=== PATIENT | male | born 1960 | race Caucasian/White ===

== ENCOUNTER 2018-12-29 21:19 | Emergency (ER) | payer OTHER ==
--- OUTSIDE RECORDS SUMMARY | 2018-12-29 21:34 | XMS REPORT | Clinical Summary ---
:1960 Author Organization [facility] Address [address] [place] [id number] Care Team Providers Name Role Phone Allyssa Frances MD Primary Care Provider Allergies No Known Allergies Medications Medication Sig Dispensed Refills Start Date End Date Status lisinopril-hydrochlo Take 1 tablet 30 tablet 11 10/22/2017 rothiazide by mouth 9 (PRINZIDE,ZESTORETIC daily. ) 20-25 mg per tabletIndications: Essential hypertension atorvastatin Take 1 tablet 90 tablet 3 10/22/2017 (LIPITOR) 20 MG (20 mg total) 9 tabletIndications: by mouth Hyperlipidemia, daily. unspecified Default OP hyperlipidemia type ins metoprolol tartrate Take 1 tablet 180 tablet 3 10/24/2017 Discontinued (LOPRESSOR) 25 mg (25 mg total) 9 tablet by mouth 2 (two) times a day. Active Problems Problem Noted Date Essential hypertension 10/27/2017 Hyperlipidemia 10/27/2017 Encounters Date Type Specialty Care Team Description 09/10/2018 Office Visit Cardiology Sai Vázquez MD Essential hypertension (Primary Dx); Hyperlipidemia, unspecified hyperlipidemia type after 12/28/2017 Family History Medical History Relation Name Comments COPD Father Heart failure Father Stroke Father Hypertension Mother Relation Name Status Comments Father Mother Alive Social History Tobacco Use Types Packs/Day Years Used Date Never Smoker Smokeless Tobacco: Never Used Alcohol Use Drinks/Week oz/Week Comments Yes socially Sex Assigned at Date Recorded Not on file Job Start Date Occupation Industry Not on file Not on file Not on file Travel History Travel Start Travel End No recent travel history available. Last Filed Vital Signs Vital Sign Reading Time Taken Blood Pressure 128/61 09/10/2018 3:34 PM BANK REPRESENTATIVE Pulse 62 09/10/2018 3:34 PM BANK REPRESENTATIVE Temperature - - Respiratory Rate - - Oxygen Saturation - - Inhaled Oxygen Concentration - - Weight 80.7 kg (178 lb) 09/10/2018 3:34 PM BANK REPRESENTATIVE Height 180.3 cm (5' 11") 09/10/2018 3:34 PM BANK REPRESENTATIVE Body Mass Index 24.83 09/10/2018 3:34 PM BANK REPRESENTATIVE Plan of Treatment Date Type Specialty Care Team Description 09/09/2019 Office Visit Cardiology Sai Vázquez MD [id number] [place] [address] Health Maintenance Due Date Last Done Comments COLON CANCER SCREENING 2009 SHINGLES VACCINES (#1) 2009 INFLUENZA VACCINE 02/27/2019 Procedures Procedure Name Priority Date/Time Associated Diagnosis Comments ECG 12-LEAD Routine 09/10/2018 3:38 PM Essential hypertension Results for this BANK REPRESENTATIVE Hyperlipidemia, procedure are in unspecified the results hyperlipidemia type section. after 12/28/2017 Results ECG 12 lead (09/10/2018 3:38 PM BANK REPRESENTATIVE) Ventricular rate 62 [facility] Atrial rate 62 [facility] WA interval 118 [facility] QRSD interval 94 [facility] QT interval 376 [facility] QTC interval 381 [facility] P axis 1 75 [facility] QRS axis 1 76 [facility] T wave axis 66 [facility] EKG impression Normal sinus rhythm [facility] with sinus arrhythmia-Normal ECG-In automated comparison with ECG of 22-OCT-2017 15:58,-No significant change was found- Specimen Narrative Performed At Performing Organization Address City/State/Zipcode Phone Number [facility] [address] [place] [address] after 12/28/2017 Advance Directives Patient has advance care planning documents on file. For more information, please contact:Kareem Mosqueda[address] [place] [address]
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
[2018-12-29] MEDS ORDERED: TETANUS & DIPHTHERIA TOX,ADULT 0.5 ML VIAL ONE (22:08)
[2018-12-29] MEDS ORDERED: AMOX/K CLAV 875 MG TAB ONE (22:08)
== END 2018-12-29 22:13 | disposition home or self-care (01) ==
LOC: ER 21:19
DX: Z71.1 Person with feared health complaint in whom no diagnosis is made (principal); I10 Essential (primary) hypertension; Z23 Encounter for immunization
CPT/HCPCS: 90471; 90714; 99284